=== PATIENT | male | born 1975 ===

== ENCOUNTER 2016-06-24 13:56 | Inpatient (IN) | payer MEDICAID, OTHER ==
[2016-06-24 15:48] LABS: Hematocrit 42 % (42-52); Hemoglobin 13.9 g/dl (14.0-18.0); Mean Corpuscular HGB Conc 33 g/dl (31-36); Mean Corpuscular Hemoglobin 31 pg (27-31); Mean Corpuscular Volume 93 fL (80-94); Mean Platelet Volume 8 um3 (7.4-10.4); Red Blood Count 4.49 10^6/ul (4.0-5.4); Red Cell Distribution Width 14 % (10.5-15); White Blood Count 7.9 10^3/ul (3.5-10.8)
[2016-06-24 16:08] LABS: ALT 19 U/L (7-52); AST 22 U/L (13-39); Albumin 4.3 g/dL (3.2-5.2); Alkaline Phosphatase 97 U/L (34-104); Anion Gap 8 mmol/L (2-11); Blood Urea Nitrogen 26 mg/dL (6-24); CO2 Carbon Dioxide 25 mmol/L (22-32); Calcium 9.7 mg/dL (8.6-10.3); Chloride 101 mmol/L (101-111); EGFR African American 114.6 (>60); EGFR Non-African American 89.1 (>60); Globulin 3.2 g/dL (2-4); Glucose 88 mg/dL (70-100); Potassium 3.9 mmol/L (3.5-5.0); Sodium 134 mmol/L (133-145); Total Protein 7.5 g/dL (6.4-8.9)
[2016-06-24 16:17] LABS: Acetaminophen < 15 mcg/mL; Alcohol < 10 mg/dL (<10); Salicylate < 2.50 mg/dL (<30)
[2016-06-24 16:27] LABS: TSH (Thyroid Stimulating Horm) 1.38 mcIU/mL (0.34-5.60)
[2016-06-24 16:32] LABS: Urine Bacteria Absent (Absent); Urine Bilirubin Negative (Negative); Urine Glucose Negative (Negative); Urine Nitrite Negative (Negative)
[2016-06-24 17:06] LABS: Benzodiazepine Urine Screen None Detected (None Detect)
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
[2016-06-26] MEDS ORDERED: LORazepam INJ* 2 MG/ML 1 ML VIAL IM ONE (05:21)
[2016-06-26] MEDS ORDERED: Haloperidol INJ IV/IM* 5 MG/ML AMP IM ONE (05:21)
[2016-06-26] MEDS ORDERED: diPHENhydraMINE IV* 50 MG/ML 1 ml VIAL (BENADRYL) IM ONE (05:21)
[2016-06-26] MEDS ORDERED: LORazepam INJ* 2 MG/ML 1 ML VIAL ONE ×2 (05:30→19:39)
[2016-06-26] MEDS ORDERED: diPHENhydraMINE IV* 50 MG/ML 1 ml VIAL (BENADRYL) ONE ×3 (05:30→19:47)
[2016-06-26] MEDS ORDERED: Haloperidol INJ IV/IM* 5 MG/ML AMP ONE ×2 (05:30→19:39)
[2016-06-26] MEDS ORDERED: Haloperidol TAB* 5 MG PO ONE (08:12)
[2016-06-26] MEDS ORDERED: LORazepam TAB(*) 1 MG PO ONE (08:12)
[2016-06-26] MEDS ORDERED: diPHENhydraMINE PO* 50 MG PO ONE (08:12)
[2016-06-26] MEDS ORDERED: DOXYcycline CAP(*) 100 MG PO ONE (08:14)
[2016-06-26] MEDS ORDERED: LORazepam TAB(*) 1 MG ONE ×2 (08:41→19:43)
--- NOTE | 2016-06-26 11:53 | PN ---
Progress Note - Progress Note Note: Patient seen and evaluated by myself in room 8 of ED. He is a 40 y.o. single, white, homeless, itinerant male with a history of bipolar BIB law enforcement for bizarre behavior in the community and inability to care for himself. He is deemed appropriate for acute admission to the [facility], pending male bed availability later this afternoon.
[2016-06-26] MEDS ORDERED: Al Hydrox/Mg Hydrox/Simet LIQ* 30 ML UDC PO PRN ×2 (13:54→14:10)
[2016-06-26] MEDS ORDERED: Acetaminophen TAB* 325 MG PO PRN ×2 (13:54→14:10)
[2016-06-26] MEDS ORDERED: Haloperidol TAB* 5 MG PO PRN (13:56)
[2016-06-26] MEDS ORDERED: LORazepam TAB(*) 1 MG PO PRN (13:56)
--- NOTE | 2016-06-26 16:57 | ED ---
I, Nataly Green, scribed for Ken Forrest MD on 06/26/16 at 0810 . Progress - Progress Note Progress Note: Re-Evaluation at 0806: Sign out from Dr. Nguyen. Pending Mental Health placement. Pt is bipolar (off his meds) and c/o abdominal pain, states tick on abd that he removed yesterday. Pt has well-defined area approx 1 cm red with a vesicle in the middle, no abscess. Could represent erythema migraines vs early cellulitis. Pt will be started on deoxycycline 100 mg BID for 7 days and will also be given 1 mg of Ativan as per Mental Health request for anxiety. Dx: bipolar, cellulitis from tick bite. Physical Examination: General appearance: poor hygiene Respiratory: CTA, Normal breath sounds Cardiovascular: RRR without murmurs Neurological/Psychiatric: appropriate judgment and insight, oriented to time, place and person, normal mood and affect 1300: Signed 9.39 Involuntary Psych Admission for pt. He will be admitted to Behavioral Health Unit, condition is stable. Dx: Insect bite vs psychosis. - Consult/PCP Time Called: 19:14 Re-Evaluation - Re-Evaluation First Eval Re-Evaluation Time: 08:06 Course/Dx - Course Course Of Treatment: NO CRITICAL CARE TIME - Diagnoses Provider Diagnoses: Mental health problem The documentation as recorded by the scribe, Nataly Green accurately reflects the service I personally performed and the decisions made by me, Ken Forrest MD.
[2016-06-26] MEDS ORDERED: Haloperidol TAB* 5 MG ONE (19:43)
[2016-06-26] MEDS ORDERED: diPHENhydraMINE PO* 50 MG ONE (19:43)
[2016-06-26] MEDS ORDERED: Ibuprofen TAB* 800 MG PO PRN (21:09)
--- NOTE | 2016-06-27 08:18 | RAD ---
Indication: RIGHT first toe and metatarsal region pain post injury. Comparison: None. Technique: AP, lateral, and oblique views RIGHT foot. REPORT AND IMPRESSION: Normal articular alignment. No cortical disruption or suspicious trabecular irregularity to suggest fracture. Mild soft tissue swelling about the medial forefoot.
[2016-06-27] MEDS ORDERED: Vitamin THERAPEUTIC TAB PO SCH (09:00)
[2016-06-27] MEDS: Vitamin THERAPEUTIC TAB PO SCH (10:34)
[2016-06-27] MEDS: DOXYcycline CAP(*) 100 MG PO SCH ×2 (10:44→21:28)
[2016-06-27] MEDS: Paliperidone TAB* 6 MG PO SCH (18:05)
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
[2016-06-28] MEDS: Paliperidone TAB* 6 MG PO SCH (10:07)
[2016-06-28] MEDS: Vitamin THERAPEUTIC TAB PO SCH (10:07)
[2016-06-28] MEDS: DOXYcycline CAP(*) 100 MG PO SCH ×3 (11:02→21:01)
--- NOTE | 2016-06-28 14:24 | PN ---
Subjective - Subjective Subjective: I attempted to visit with Mr. Topete on follow-up today. Each of my questions were answered with a sound "uhm"-patient would not speak with me directly. Did not answer any questions. Nursing staff report that he is compliant with oral medication (doxycycline) but is non-compliant with Invega. No issues at this time. I was unable to assess Mr. Topete for suicidal ideation, visual/auditory hallucinations, or delusional thought processes. Case was discussed with Dr. Arreguin. Objective - Appearance Appearance: Thin Framed Dysmorphic Features: No Hygiene: Normal - Unkempt Grooming: Disheveled - Behavior Psychomotor Activities: Normal - Attitude and Relatedness Attitude and Relatedness: Withdrawn Eye Contact: Poor - Speech Quality: Unpressured - Would not speak to me, thus I am unable to assess speech quality, latency or quantity. - Mood Patient's Decription of Mood: Pt. would not speak with me. - Affect Observed Affect: Unvariable - Impulse Control Impulse Control: Tenuous - Insight and Judgement Insight and Judgement: Impaired Plan - Plan Treatment Plan: Name: DARRYL TOPETE Birthdate: 1975 [id number] Medications: Current Medications Acetaminophen (Tylenol Tab*) 650 mg PO Q4H PRN PRN Reason: for pain; or Temp >101 F Al Hydrox/Mg Hydrox/Simethicone (Maalox Plus*) 30 ml PO Q4H PRN PRN Reason: INDIGESTION Doxycycline Hyclate (Vibramycin Cap(*)) 100 mg PO BID [facility] Stop: 07/05/16 21:01 Last Admin: 06/28/16 11:06 Dose: 100 mg Haloperidol (Haldol Tab*) 5 mg PO Q6H PRN PRN Reason: AGITATION Ibuprofen (Motrin Tab*) 800 mg PO Q8H PRN PRN Reason: PAIN Lorazepam (Ativan Tab(*)) 2 mg PO Q6H PRN PRN Reason: ANXIETY Multivitamins (Theragran Tab*) 1 tab PO DAILY [facility] Last Admin: 06/28/16 10:07 Dose: Not Given Paliperidone (Invega Tab*) 6 mg PO DAILY [facility] Last Admin: 06/28/16 10:07 Dose: Not Given
[2016-06-28] MEDS ORDERED: diPHENhydraMINE IV* 50 MG/ML 1 ml VIAL (BENADRYL) ONE (17:00)
[2016-06-28] MEDS ORDERED: LORazepam INJ* 2 MG/ML 1 ML VIAL IM ONE (17:30)
[2016-06-28] MEDS ORDERED: diPHENhydraMINE IV* 50 MG/ML 1 ml VIAL (BENADRYL) IM ONE (17:30)
[2016-06-28] MEDS ORDERED: Haloperidol INJ IV/IM* 5 MG/ML AMP IM ONE (17:30)
[2016-06-29] MEDS: DOXYcycline CAP(*) 100 MG PO SCH ×2 (09:37→20:42)
[2016-06-29] MEDS: Vitamin THERAPEUTIC TAB PO SCH (09:45)
[2016-06-29] MEDS: Paliperidone TAB* 6 MG PO SCH (09:45)
[2016-06-30] MEDS: Paliperidone TAB* 6 MG PO SCH (09:10)
[2016-06-30] MEDS: Vitamin THERAPEUTIC TAB PO SCH (09:10)
[2016-06-30] MEDS: DOXYcycline CAP(*) 100 MG PO SCH ×2 (09:10→22:11)
--- NOTE | 2016-06-30 15:42 | PN ---
Subjective - Subjective Service Type: 81890 Hosp care 15 min low complexity Subjective: Patient initially refuses to interact with me. When he does start speaking he raises his voice and becomes quite agitated, voicing complaints about bizarre subjects such as a plastic bubble that came down over a bank KEELY, which prevented him from withdrawing christopher, and "convex" nail clippers offered by staff members, instead of "concave." "It's not the same [place] that I left 3 years ago. It's like a different universe." He continues to decline paliperidone therapy and is not participating in groups. Objective - Appearance Appearance: Thin Framed Dysmorphic Features: No Hygiene: Normal Grooming: Fairly Well Kept - Behavior Psychomotor Activities: Normal Exhibits Abnormal Movement: No - Attitude and Relatedness Attitude and Relatedness: Hostile Eye Contact: Poor - Speech Quality: Pressured Latencies: Short Quantity: Copious - Affect Observed Affect: Labile Affect Consistent with: Dysphoria - Thought Process Patient's Thought Process: Tangential Thought Content: Yes Paranoid Ideation, No Passive Wish, No Suicidal Planning, No Homicidal Ideation - Sensorium Experiencing Hallucinations: No, Sensorium is Clear Type of Hallucinations: Visual: No, Auditory: No, Command: No - Level of Consciousness Level of Consciousness: Alert Orientation: Yes Intact, Yes Orientated to Time, Yes Orientated to Place, Yes Orientated to Person - Impulse Control Impulse Control: Poor - Insight and Judgement Insight and Judgement: Impaired - Group Participation Particating in Group Activities: No - Medication Management Medication Management Adherence: No Assessment - Assessment Merits Inpatient Hospitalization: For Immediate Safety, For Stabilization Inpatient DSM-IV Dx: Unspecified Psychotic DO Clinical Impression: 40 y.o. single, white, homeless, itinerant male, self identifying as Gnosticist, with a history of multiple past psychiatric admissions in multiple countries, brought in on a 9.41 by police who had discovered him wading, fully clothed and with a backpack, into [facility], who now presents with paranoid and hyperreligious delusions, irritability and inability to care for himself. Plan - Plan Treatment Plan: Name: DARRYL TOPETE Birthdate: 1975 [id number] The patient is refusing medications and remains delusional and hyperreligious. His behavior has been sufficiently dangerous to warrant Security intervention and stat PRN psychotropic medications on several occasions. We will pursue court order for [place]. and continue to work on the therapeutic alliance. Continued Medication Management: Start Medication Medications: Current Medications Acetaminophen (Tylenol Tab*) 650 mg PO Q4H PRN PRN Reason: for pain; or Temp >101 F Al Hydrox/Mg Hydrox/Simethicone (Maalox Plus*) 30 ml PO Q4H PRN PRN Reason: INDIGESTION Doxycycline Hyclate (Vibramycin Cap(*)) 100 mg PO BID [facility] Stop: 07/06/16 09:01 Last Admin: 06/30/16 09:10 Dose: 100 mg Haloperidol (Haldol Tab*) 5 mg PO Q6H PRN PRN Reason: AGITATION Ibuprofen (Motrin Tab*) 800 mg PO Q8H PRN PRN Reason: PAIN Lorazepam (Ativan Tab(*)) 2 mg PO Q6H PRN PRN Reason: ANXIETY Multivitamins (Theragran Tab*) 1 tab PO DAILY [facility] Last Admin: 06/30/16 09:10 Dose: Not Given Paliperidone (Invega Tab*) 6 mg PO DAILY [facility] Last Admin: 06/30/16 09:10 Dose: Not Given - Discharge Plan Discharge Plan: Inpatient Hospitalization
[2016-07-01] MEDS: Paliperidone TAB* 6 MG PO SCH (09:43)
[2016-07-01] MEDS: Vitamin THERAPEUTIC TAB PO SCH (09:43)
[2016-07-01] MEDS: DOXYcycline CAP(*) 100 MG PO SCH ×2 (09:43→21:33)
--- NOTE | 2016-07-01 11:12 | PN ---
Subjective - Subjective Service Type: [id number] Hosp care 15 min low complexity Subjective: The patient is irritable and hostile. States that his step-mother is hiring him an employment law attorney to represent him to get out of the hospital. When confronted with his agitated and nonsensical behaviors, both before and during hospitalization, he either states that these are lies or the result of outside forces, such as people who dislike him, or demons. "This place is not real. [place] is not real. Don't you see that I don't want to be part of the psychological, ego-driven realm that people live their lives?" He continues to refuse medications. Objective - Appearance Appearance: Thin Framed Dysmorphic Features: No Hygiene: Normal Grooming: Fairly Well Kept - Behavior Psychomotor Activities: Normal Exhibits Abnormal Movement: No - Attitude and Relatedness Attitude and Relatedness: Hostile Eye Contact: Poor - Speech Quality: Pressured Latencies: Short Quantity: Copious - Mood Patient's Decription of Mood: "Irritable" - Affect Observed Affect: Labile Affect Consistent with: Dysphoria - Thought Process Patient's Thought Process: Filght of Ideas Thought Content: Yes Paranoid Ideation, No Passive Wish, No Suicidal Planning, No Homicidal Ideation - Sensorium Experiencing Hallucinations: No, Sensorium is Clear Type of Hallucinations: Visual: No, Auditory: No, Command: No - Level of Consciousness Level of Consciousness: Agitated Orientation: Yes Intact, Yes Orientated to Time, Yes Orientated to Place, Yes Orientated to Person - Impulse Control Impulse Control: Poor - Insight and Judgement Insight and Judgement: Impaired - Group Participation Particating in Group Activities: No - Medication Management Medication Management Adherence: No Assessment - Assessment Merits Inpatient Hospitalization: For Immediate Safety, For Stabilization Inpatient DSM-IV Dx: Unspecified Psychotic DO Clinical Impression: 40 y.o. single, white, homeless, itinerant male, self identifying as Shinto, with a history of multiple past psychiatric admissions in multiple countries, brought in on a 9.41 by police who had discovered him wading, fully clothed and with a backpack, into [facility], who now presents with paranoid and hyperreligious delusions, irritability and inability to care for himself. Plan - Plan Treatment Plan: Name: DARRYL TOPETE Birthdate: 1975 [id number] The patient is refusing medications and remains delusional and hyperreligious. His behavior has been sufficiently dangerous to warrant Security intervention and stat PRN psychotropic medications on several occasions. We will pursue court order for T.O.O. and continue to work on the therapeutic alliance. Continued Medication Management: Start Medication Medications: Current Medications Acetaminophen (Tylenol Tab*) 650 mg PO Q4H PRN PRN Reason: for pain; or Temp >101 F Al Hydrox/Mg Hydrox/Simethicone (Maalox Plus*) 30 ml PO Q4H PRN PRN Reason: INDIGESTION Doxycycline Hyclate (Vibramycin Cap(*)) 100 mg PO BID [facility] Stop: 07/06/16 09:01 Last Admin: 07/01/16 09:43 Dose: 100 mg Haloperidol (Haldol Tab*) 5 mg PO Q6H PRN PRN Reason: AGITATION Ibuprofen (Motrin Tab*) 800 mg PO Q8H PRN PRN Reason: PAIN Lorazepam (Ativan Tab(*)) 2 mg PO Q6H PRN PRN Reason: ANXIETY Multivitamins (Theragran Tab*) 1 tab PO DAILY [facility] Last Admin: 07/01/16 09:43 Dose: Not Given Paliperidone (Invega Tab*) 6 mg PO DAILY [facility] Last Admin: 07/01/16 09:43 Dose: Not Given - Discharge Plan Discharge Plan: Inpatient Hospitalization
[2016-07-02] MEDS: Paliperidone TAB* 6 MG PO SCH (09:41)
[2016-07-02] MEDS: Vitamin THERAPEUTIC TAB PO SCH (09:41)
[2016-07-02] MEDS: DOXYcycline CAP(*) 100 MG PO SCH ×2 (09:52→21:20)
--- NOTE | 2016-07-02 11:29 | PN ---
Subjective - Subjective Service Type: [id number] Hosp care 15 min low complexity Subjective: The patient is seen in his room, where he keeps a blanket over his face, refusing to make eye contact and responding initially with only unintelligible grunts to my questions. Staff reports indicate that he remains demanding, irritable and up at night chanting restoration mantra on the milieu. The patient' s belief is that he is being treated unfairly and that staff are making him out to be more dangerous than he really is. He complains to me about not receiving proper treatment, for example, on the right foot that he kicked a door with on the evening of his admission to the unit. I reiterate that X-rays are negative and that he has prn pain medication and ice available. "Isn't this a medical center though? Isn't it your mission statement to provide real medical treatment to patients? Why haven't you wrapped it up and given me a cane or walker to prevent me from re-injuring it?" He is educated about our concerns for violent behavior, were he to have a cane or walker, but he is dismissive towards this. He continues to decline medication. Objective - Appearance Appearance: Thin Framed Dysmorphic Features: No Hygiene: Normal Grooming: Fairly Well Kept - Behavior Psychomotor Activities: Normal Exhibits Abnormal Movement: No - Attitude and Relatedness Attitude and Relatedness: Hostile Eye Contact: Poor - Speech Quality: Pressured Latencies: Short Quantity: Copious - Mood Patient's Decription of Mood: "Irritable" - Affect Observed Affect: Tense Affect Consistent with: Dysphoria - Thought Process Patient's Thought Process: Circumstantial Thought Content: Yes Paranoid Ideation, No Passive Wish, No Suicidal Planning, No Homicidal Ideation - Sensorium Experiencing Hallucinations: No, Sensorium is Clear Type of Hallucinations: Visual: No, Auditory: No, Command: No - Level of Consciousness Level of Consciousness: Agitated Orientation: Yes Intact, Yes Orientated to Time, Yes Orientated to Place, Yes Orientated to Person - Impulse Control Impulse Control: Poor - Insight and Judgement Insight and Judgement: Impaired - Group Participation Particating in Group Activities: No - Medication Management Medication Management Adherence: No Assessment - Assessment Merits Inpatient Hospitalization: For Immediate Safety, For Stabilization Inpatient DSM-IV Dx: Unspecified Psychotic DO Clinical Impression: 40 y.o. single, white, homeless, itinerant male, self identifying as Islam, with a history of multiple past psychiatric admissions in multiple countries, brought in on a 9.41 by police who had discovered him wading, fully clothed and with a backpack, into [facility], who now presents with paranoid and hyperreligious delusions, irritability and inability to care for himself. Plan - Plan Treatment Plan: Name: DARRYL TOPETE Birthdate: 1975 [id number] The patient is refusing medications and remains delusional and hyperreligious. His behavior has been sufficiently dangerous to warrant Security intervention and stat PRN psychotropic medications on several occasions. We will pursue court order for T.O.O. and continue to work on the therapeutic alliance. Continued Medication Management: Start Medication Medications: Current Medications Acetaminophen (Tylenol Tab*) 650 mg PO Q4H PRN PRN Reason: for pain; or Temp >101 F Al Hydrox/Mg Hydrox/Simethicone (Maalox Plus*) 30 ml PO Q4H PRN PRN Reason: INDIGESTION Doxycycline Hyclate (Vibramycin Cap(*)) 100 mg PO BID [facility] Stop: 07/06/16 09:01 Last Admin: 07/02/16 09:52 Dose: Not Given Haloperidol (Haldol Tab*) 5 mg PO Q6H PRN PRN Reason: AGITATION Ibuprofen (Motrin Tab*) 800 mg PO Q8H PRN PRN Reason: PAIN Lorazepam (Ativan Tab(*)) 2 mg PO Q6H PRN PRN Reason: ANXIETY Multivitamins (Theragran Tab*) 1 tab PO DAILY [facility] Last Admin: 07/02/16 09:41 Dose: Not Given Paliperidone (Invega Tab*) 6 mg PO DAILY [facility] Last Admin: 07/02/16 09:41 Dose: Not Given - Discharge Plan Discharge Plan: Inpatient Hospitalization
[2016-07-02] MEDS ORDERED: Haloperidol INJ IV/IM* 5 MG/ML AMP ONE (13:22)
[2016-07-02] MEDS ORDERED: diPHENhydraMINE IV* 50 MG/ML 1 ml VIAL (BENADRYL) ONE (13:22)
[2016-07-02] MEDS ORDERED: LORazepam INJ* 2 MG/ML 1 ML VIAL ONE (13:22)
[2016-07-03] MEDS: DOXYcycline CAP(*) 100 MG PO SCH ×2 (09:55→21:02)
[2016-07-03] MEDS: Paliperidone TAB* 6 MG PO SCH (09:55)
[2016-07-03] MEDS: Vitamin THERAPEUTIC TAB PO SCH (09:55)
--- NOTE | 2016-07-03 13:30 | PN ---
MHU: Group Therapy Note - Service Type Service Type: [id number] Group Psychotherapy - Cognitive Behavioral Group Therapy ( CBT):Patient presented in CBT programming as disorganized and disruptive in discussion and needed repeated redirection to attend to presented materials.
--- NOTE | 2016-07-03 13:37 | PN ---
Subjective - Subjective Service Type: [id number] Hosp care 15 min low complexity Subjective: The patient is hyperverbal. He discusses the events leading up to his deportation from [place], his arrival and brief hospitalization in [place], [place], his trip to [place] and difficulties finding a safe place to stay. His account is dream-like and full of allusions to persecutory and violent interactions with others, with himself always portrayed as the victim. He is argumentative and frequently raises his voice in objection to some observation or clarifying remark of mine. He required prn administration of IM stat meds yesterday for an incident in which he became irate and disruptive during a DBT group. Staff notes indicate that he objected to the meditation component of the class being taught by a mental health tech with no qualifications to teach the subject. After being asked to leave, he stood outside the door of the group room with a menacing stare and was screaming at the general doc. Lew takes no responsibility for this behavior, believing himself justified in wanting proof of the general doc's training. Objective - Appearance Appearance: Thin Framed Dysmorphic Features: No Hygiene: Normal Grooming: Fairly Well Kept - Behavior Psychomotor Activities: Normal Exhibits Abnormal Movement: No - Attitude and Relatedness Attitude and Relatedness: Hostile Eye Contact: Poor - Speech Quality: Pressured Latencies: Short Quantity: Copious - Mood Patient's Decription of Mood: "Irritable" - Affect Observed Affect: Labile Affect Consistent with: Dysphoria - Thought Process Patient's Thought Process: Tangential Thought Content: Yes Paranoid Ideation, No Passive Wish, No Suicidal Planning, No Homicidal Ideation - Sensorium Experiencing Hallucinations: No, Sensorium is Clear Type of Hallucinations: Visual: No, Auditory: No, Command: No - Level of Consciousness Level of Consciousness: Agitated Orientation: Yes Intact, Yes Orientated to Time, Yes Orientated to Place, Yes Orientated to Person - Impulse Control Impulse Control: Poor - Insight and Judgement Insight and Judgement: Impaired - Group Participation Particating in Group Activities: No - Medication Management Medication Management Adherence: No Assessment - Assessment Merits Inpatient Hospitalization: For Immediate Safety, For Stabilization Inpatient DSM-IV Dx: Unspecified Psychotic DO Clinical Impression: 40 y.o. single, white, homeless, itinerant male, self identifying as Hindu, with a history of multiple past psychiatric admissions in multiple countries, brought in on a 9.41 by police who had discovered him wading, fully clothed and with a backpack, into [facility], who now presents with paranoid and hyperreligious delusions, irritability and inability to care for himself. Plan - Plan Treatment Plan: Name: LEW TOPETE Birthdate: 1975 [id number] The patient is refusing medications and remains argumentative, delusional and hyperreligious. His behavior has been sufficiently dangerous to warrant Security intervention and stat PRN psychotropic medications on several occasions. We will pursue court order for T.O.O. and continue to work on the therapeutic alliance. Continued Medication Management: Start Medication Medications: Current Medications Acetaminophen (Tylenol Tab*) 650 mg PO Q4H PRN PRN Reason: for pain; or Temp >101 F Al Hydrox/Mg Hydrox/Simethicone (Maalox Plus*) 30 ml PO Q4H PRN PRN Reason: INDIGESTION Doxycycline Hyclate (Vibramycin Cap(*)) 100 mg PO BID [facility] Stop: 07/06/16 09:01 Last Admin: 07/03/16 09:55 Dose: Not Given Haloperidol (Haldol Tab*) 5 mg PO Q6H PRN PRN Reason: AGITATION Ibuprofen (Motrin Tab*) 800 mg PO Q8H PRN PRN Reason: PAIN Lorazepam (Ativan Tab(*)) 2 mg PO Q6H PRN PRN Reason: ANXIETY Multivitamins (Theragran Tab*) 1 tab PO DAILY [facility] Last Admin: 07/03/16 09:55 Dose: Not Given Paliperidone (Invega Tab*) 6 mg PO DAILY [facility] Last Admin: 07/03/16 09:55 Dose: Not Given - Discharge Plan Discharge Plan: Inpatient Hospitalization
[2016-07-04] MEDS: Vitamin THERAPEUTIC TAB PO SCH (07:53)
[2016-07-04] MEDS: Paliperidone TAB* 6 MG PO SCH (07:53)
[2016-07-04] MEDS: DOXYcycline CAP(*) 100 MG PO SCH ×2 (07:53→21:21)
--- NOTE | 2016-07-04 12:47 | PN ---
Subjective - Subjective Service Type: [id number] Hosp care 15 min low complexity Subjective: Lew is seen today for the court hearing on the questions of retention and treatment over objection. He is hyperverbal and continues to talk in a paranoid , hyperreligious manner about the events leading to his hospitalization and how he's been treated here at [facility]. He became agitated when the [facility] came to escort him to court, apparently upset by the protocol to place him in handcuffs for the trip. Otherwise, he tolerated the hearing well, even upon hearing that the edge sawyer sided with the hospital's position. Objective - Appearance Appearance: Thin Framed Dysmorphic Features: No Hygiene: Normal Grooming: Fairly Well Kept - Behavior Psychomotor Activities: Normal Exhibits Abnormal Movement: No - Attitude and Relatedness Attitude and Relatedness: Hostile Eye Contact: Poor - Speech Quality: Pressured Latencies: Short Quantity: Copious - Mood Patient's Decription of Mood: "Irritable" - Affect Observed Affect: Tense Affect Consistent with: Dysphoria - Thought Process Patient's Thought Process: Tangential Thought Content: Yes Paranoid Ideation, No Passive Wish, No Suicidal Planning, No Homicidal Ideation - Sensorium Experiencing Hallucinations: No, Sensorium is Clear Type of Hallucinations: Visual: No, Auditory: No, Command: No - Level of Consciousness Level of Consciousness: Alert Orientation: Yes Intact, Yes Orientated to Time, Yes Orientated to Place, Yes Orientated to Person - Impulse Control Impulse Control: Poor - Insight and Judgement Insight and Judgement: Impaired - Group Participation Particating in Group Activities: No - Medication Management Medication Management Adherence: No Assessment - Assessment Merits Inpatient Hospitalization: For Immediate Safety, For Stabilization Inpatient DSM-IV Dx: Unspecified Psychotic DO Clinical Impression: 40 y.o. single, white, homeless, itinerant male, self identifying as Mandaen, with a history of multiple past psychiatric admissions in multiple countries, brought in on a 9.41 by police who had discovered him wading, fully clothed and with a backpack, into [facility], who now presents with paranoid and hyperreligious delusions, irritability and inability to care for himself. Plan - Plan Treatment Plan: Name: LEW TOPETE Birthdate: 1975 [id number] The patient is refusing medications and remains argumentative, delusional and hyperreligious. His behavior has been sufficiently dangerous to warrant Security intervention and stat PRN psychotropic medications on several occasions. We await a hard copy of the edge sawyer's order for treatment over his objection and will likely start antipsychotic therapy. Continued Medication Management: Start Medication Medications: Current Medications Acetaminophen (Tylenol Tab*) 650 mg PO Q4H PRN PRN Reason: for pain; or Temp >101 F Al Hydrox/Mg Hydrox/Simethicone (Maalox Plus*) 30 ml PO Q4H PRN PRN Reason: INDIGESTION Doxycycline Hyclate (Vibramycin Cap(*)) 100 mg PO BID [facility] Stop: 07/06/16 09:01 Last Admin: 07/04/16 07:53 Dose: Not Given Haloperidol (Haldol Tab*) 5 mg PO Q6H PRN PRN Reason: AGITATION Ibuprofen (Motrin Tab*) 800 mg PO Q8H PRN PRN Reason: PAIN Lorazepam (Ativan Tab(*)) 2 mg PO Q6H PRN PRN Reason: ANXIETY Multivitamins (Theragran Tab*) 1 tab PO DAILY [facility] Last Admin: 07/04/16 07:53 Dose: Not Given Paliperidone (Invega Tab*) 6 mg PO DAILY [facility] Last Admin: 07/04/16 07:53 Dose: Not Given - Discharge Plan Discharge Plan: Inpatient Hospitalization
[2016-07-05] MEDS: Vitamin THERAPEUTIC TAB PO SCH (09:52)
[2016-07-05] MEDS: Paliperidone TAB* 6 MG PO SCH (09:52)
[2016-07-05] MEDS: DOXYcycline CAP(*) 100 MG PO SCH ×2 (09:52→20:17)
--- NOTE | 2016-07-05 16:34 | PN ---
Subjective - Subjective Service Type: 74203 Hosp care 25 min moderate complexity Subjective: Patient continues to refuse medications. States he would voluntarily consider taking meds if he could speak with a Jew grinder set up operator universal. Patient remains hyperverbal, pressured and argumentative on the unit, narrowly avoiding prn stat meds on multiple occasions since yesterday. Objective - Appearance Appearance: Thin Framed Dysmorphic Features: No Hygiene: Normal Grooming: Well Kept - Behavior Psychomotor Activities: Abnormal-Increased Exhibits Abnormal Movement: No - Attitude and Relatedness Attitude and Relatedness: argumentative Eye Contact: Fair - Speech Quality: Pressured Latencies: Short Quantity: Copious - Mood Patient's Decription of Mood: "Irritable" - Affect Observed Affect: Labile Affect Consistent with: Dysphoria - Thought Process Patient's Thought Process: Tangential Thought Content: Yes Paranoid Ideation, No Passive Wish, No Suicidal Planning, No Homicidal Ideation - Sensorium Experiencing Hallucinations: No, Sensorium is Clear Type of Hallucinations: Visual: No, Auditory: No, Command: No - Level of Consciousness Level of Consciousness: Agitated Orientation: Yes Intact, Yes Orientated to Time, Yes Orientated to Place, Yes Orientated to Person - Impulse Control Impulse Control: Poor - Insight and Judgement Insight and Judgement: Impaired - Group Participation Particating in Group Activities: No - Medication Management Medication Management Adherence: No Assessment - Assessment Merits Inpatient Hospitalization: For Immediate Safety, For Stabilization Inpatient DSM-IV Dx: Unspecified Psychotic DO Clinical Impression: 40 y.o. single, white, homeless, itinerant male, self identifying as Jew, with a history of multiple past psychiatric admissions in multiple countries, brought in on a 9.41 by police who had discovered him wading, fully clothed and with a backpack, into [facility], who now presents with paranoid and hyperreligious delusions, irritability and inability to care for himself. Plan - Plan Treatment Plan: Name: DARRYL TOPETE Birthdate: 1975 [id number] The patient is refusing medications and remains argumentative, delusional and hyperreligious. Will consult grinder set up operator universal to see if there is a Jew authority in the area who can discuss his episcopal exceptions to taking medications. Otherwise I fear that he will quickly become non-adherent after discharge. Continued Medication Management: Start Medication Medications: Current Medications Acetaminophen (Tylenol Tab*) 650 mg PO Q4H PRN PRN Reason: for pain; or Temp >101 F Al Hydrox/Mg Hydrox/Simethicone (Maalox Plus*) 30 ml PO Q4H PRN PRN Reason: INDIGESTION Doxycycline Hyclate (Vibramycin Cap(*)) 100 mg PO BID [facility] Stop: 07/06/16 09:01 Last Admin: 07/05/16 09:52 Dose: Not Given Haloperidol (Haldol Tab*) 5 mg PO Q6H PRN PRN Reason: AGITATION Ibuprofen (Motrin Tab*) 800 mg PO Q8H PRN PRN Reason: PAIN Lorazepam (Ativan Tab(*)) 2 mg PO Q6H PRN PRN Reason: ANXIETY Multivitamins (Theragran Tab*) 1 tab PO DAILY [facility] Last Admin: 07/05/16 09:52 Dose: Not Given Paliperidone (Invega Tab*) 6 mg PO DAILY [facility] Last Admin: 07/05/16 09:52 Dose: Not Given - Discharge Plan Discharge Plan: Inpatient Hospitalization
[2016-07-06] MEDS: Paliperidone TAB* 6 MG PO SCH (09:31)
[2016-07-06] MEDS: DOXYcycline CAP(*) 100 MG PO SCH (09:31)
[2016-07-06] MEDS: Vitamin THERAPEUTIC TAB PO SCH (09:31)
[2016-07-07] MEDS: Paliperidone TAB* 6 MG PO SCH (09:12)
[2016-07-07] MEDS: Vitamin THERAPEUTIC TAB PO SCH (09:13)
--- NOTE | 2016-07-07 12:59 | PN ---
Subjective - Subjective Service Type: 18755 Hosp care 15 min low complexity Subjective: Lew is seen in the hallway and he immediately engages me, telling me that his rights are being violated. "You haven't allowed me to use a computer or go outside for fresh air. Even prisoners and animals are granted these things!" He is extremely loud and pressured when he is making these points. He expresses his belief that I am controlling his freedom for my own pleasure. "This is just a game to you. You are interested in sports! It's all about winning, you jackass!" He remains non-adherent with medications and insists on seeing a monk from the local [facility] before he allows anyone to medicate him. Objective - Appearance Appearance: Thin Framed Dysmorphic Features: No Hygiene: Normal Grooming: Well Kept - Behavior Psychomotor Activities: Abnormal-Increased Exhibits Abnormal Movement: No - Attitude and Relatedness Attitude and Relatedness: Hostile Eye Contact: Poor - Speech Quality: Pressured Latencies: Short Quantity: Copious - Mood Patient's Decription of Mood: "Terrible" - Affect Observed Affect: Labile Affect Consistent with: Dysphoria - Thought Process Patient's Thought Process: Tangential Thought Content: Yes Paranoid Ideation, No Passive Wish, No Suicidal Planning, No Homicidal Ideation - Sensorium Experiencing Hallucinations: No, Sensorium is Clear Type of Hallucinations: Visual: No, Auditory: No, Command: No - Level of Consciousness Level of Consciousness: Agitated Orientation: Yes Intact, Yes Orientated to Time, Yes Orientated to Place, Yes Orientated to Person - Impulse Control Impulse Control: Poor - Insight and Judgement Insight and Judgement: Impaired - Group Participation Particating in Group Activities: No - Medication Management Medication Management Adherence: No Assessment - Assessment Merits Inpatient Hospitalization: For Immediate Safety, For Stabilization Inpatient DSM-IV Dx: Unspecified Psychotic DO Clinical Impression: 40 y.o. single, white, homeless, itinerant male, self identifying as Synagogue, with a history of multiple past psychiatric admissions in multiple countries, brought in on a 9.41 by police who had discovered him wading, fully clothed and with a backpack, into [facility], who now presents with paranoid and hyperreligious delusions, irritability and inability to care for himself. Plan - Plan Treatment Plan: Name: LEW TOPETE Birthdate: 1975 [id number] The patient is refusing medications and remains argumentative, delusional and hyperreligious. Will consult legal secretary to see if there is a Synagogue authority in the area who can discuss his worship exceptions to taking medications. Otherwise I fear that he will quickly become non-adherent after discharge. Continued Medication Management: Start Medication Medications: Current Medications Acetaminophen (Tylenol Tab*) 650 mg PO Q4H PRN PRN Reason: for pain; or Temp >101 F Al Hydrox/Mg Hydrox/Simethicone (Maalox Plus*) 30 ml PO Q4H PRN PRN Reason: INDIGESTION Haloperidol (Haldol Tab*) 5 mg PO Q6H PRN PRN Reason: AGITATION Ibuprofen (Motrin Tab*) 800 mg PO Q8H PRN PRN Reason: PAIN Lorazepam (Ativan Tab(*)) 2 mg PO Q6H PRN PRN Reason: ANXIETY Multivitamins (Theragran Tab*) 1 tab PO DAILY [facility] Last Admin: 07/07/16 09:13 Dose: Not Given Paliperidone (Invega Tab*) 6 mg PO DAILY [facility] Last Admin: 07/07/16 09:12 Dose: Not Given - Discharge Plan Discharge Plan: Inpatient Hospitalization
[2016-07-08] MEDS: Paliperidone TAB* 6 MG PO SCH (09:46)
[2016-07-08] MEDS: Vitamin THERAPEUTIC TAB PO SCH (09:46)
--- NOTE | 2016-07-08 11:27 | PN ---
MHU: Group Therapy Note - Service Type Service Type: [id number] Group Psychotherapy - Cognitive Behavioral Group Therapy ( CBT):Patient presented in CBT programming as disorganized and disruptive in discussion and needed repeated redirection to attend to presented materials. Lew simply attempted to contradict introduced discussion of various clinical concepts. This behavior impressed as intentional, as he remains angry and indignant of his inpatient status.
[2016-07-08] MEDS ORDERED: Haloperidol INJ IV/IM* 5 MG/ML AMP IM PRN (12:42)
[2016-07-08] MEDS ORDERED: Haloperidol INJ IV/IM* 5 MG/ML AMP ONE (12:45)
[2016-07-08] MEDS ORDERED: ARIPiprazole TAB* 5 MG ONE (12:45)
--- NOTE | 2016-07-08 13:09 | PN ---
Subjective - Subjective Service Type: [id number] [facility] care 15 min low complexity Subjective: The patient is screaming at me that I have violated his rights and have no legal justification to medicate him over his objection. When I inform him of my decision to place him on oral aripiprazole, and that he will receive IM haldol if he refuses this he reacts by prostrating himself on the ground and attempting to kiss my feet. "No please don't use chemicals inside of me! I'll do anything you ask!" Ultimately, he did refuse oral aripiprazole and received an IM dose of haldol, in accordance with the taxicab coordinator's order. I spoke with his step-Mother, Chandni ([phone]), who is his sole JASEN, and kept her abreast of the situation. I also spoke with Ritesh Hughes about reaching out to the local Anabaptist community to find him some pastoral support from his chosen gnosticist tradition. Forwarded emails from his mother and extended family indicate that Darryl's submarine advisory team watch officer, Rufino, was spiking Darryl's food at various times with a hallucinogenic seed called Datura. Family inquires as to how much this substance may have damaged the patient's thinking. His mother alleges in one of the emails that during a recent telephone conversation Darryl told her to have a "smooth and safe ." Objective - Appearance Appearance: Thin Framed Dysmorphic Features: No Hygiene: Normal Grooming: Well Kept - Behavior Psychomotor Activities: Abnormal-Increased Exhibits Abnormal Movement: No - Attitude and Relatedness Attitude and Relatedness: Hostile Eye Contact: Poor - Speech Quality: Pressured Latencies: Short Quantity: Copious - Mood Patient's Decription of Mood: "Terrible" - Affect Observed Affect: Labile Affect Consistent with: Dysphoria - Thought Process Patient's Thought Process: Tangential Thought Content: Yes Paranoid Ideation, No Passive Wish, No Suicidal Planning, No Homicidal Ideation - Sensorium Experiencing Hallucinations: No, Sensorium is Clear Type of Hallucinations: Visual: No, Auditory: No, Command: No - Level of Consciousness Level of Consciousness: Alert Orientation: Yes Intact, Yes Orientated to Time, Yes Orientated to Place, Yes Orientated to Person - Impulse Control Impulse Control: Poor - Insight and Judgement Insight and Judgement: Impaired - Group Participation Particating in Group Activities: No - Medication Management Medication Management Adherence: No Assessment - Assessment Merits Inpatient Hospitalization: For Immediate Safety, For Stabilization Inpatient DSM-IV Dx: Unspecified Psychotic DO Clinical Impression: 40 y.o. single, white, homeless, itinerant male, self identifying as Anabaptist, with a history of multiple past psychiatric admissions in multiple countries, brought in on a 9.41 by police who had discovered him wading, fully clothed and with a backpack, into [facility], who now presents with paranoid and hyperreligious delusions, irritability and inability to care for himself. Plan - Plan Treatment Plan: Name: DARRYL TOPETE Birthdate: 1975 [id number] The patient is refusing medications and remains argumentative, delusional and hyperreligious. Will begin court-ordered treatment with aripiprazole 5mg PO qday. If he refuses we will administer IM haldol 5mg. We are working with the consult pelletizer operator to see if there is a Anabaptist authority in the area who can discuss his gnosticist exceptions to taking medications. Patient's prognosis is guarded secondary to poor insight. Continued Medication Management: Start Medication Medications: Current Medications Acetaminophen (Tylenol Tab*) 650 mg PO Q4H PRN PRN Reason: for pain; or Temp >101 F Al Hydrox/Mg Hydrox/Simethicone (Maalox Plus*) 30 ml PO Q4H PRN PRN Reason: INDIGESTION Aripiprazole (Abilify Tab*) 5 mg PO DAILY [facility] Haloperidol (Haldol Tab*) 5 mg PO Q6H PRN PRN Reason: AGITATION Haloperidol Lactate (Haldol Inj Iv/Im*) 5 mg IM DAILY PRN PRN Reason: AGITATION Last Admin: 07/08/16 12:58 Dose: 5 mg Ibuprofen (Motrin Tab*) 800 mg PO Q8H PRN PRN Reason: PAIN Lorazepam (Ativan Tab(*)) 2 mg PO Q6H PRN PRN Reason: ANXIETY Multivitamins (Theragran Tab*) 1 tab PO DAILY [facility]I Last Admin: 07/08/16 09:46 Dose: Not Given - Discharge Plan Discharge Plan: Inpatient Hospitalization
[2016-07-09] MEDS: Vitamin THERAPEUTIC TAB PO SCH (10:12)
[2016-07-09] MEDS: ARIPiprazole TAB* 5 MG PO SCH (10:13)
--- NOTE | 2016-07-09 11:26 | PN ---
MHU: Group Therapy Note - Service Type Service Type: [id number] Group Psychotherapy - Cognitive Behavioral Group Therapy ( CBT):Patient was attentive and participatory in CBT programming this morning, and remained in good behavioral control. Patient expressed positive insights regarding relevant treatment interventions and goals.
--- NOTE | 2016-07-09 12:03 | PN ---
Subjective - Subjective Service Type: [id number] [facility]osp care 15 min low complexity Subjective: Lew appears more subdued this AM. He took the oral aripiprazole this morning after refusing it yesterday and receiving IM haldol, which he claims gave him stomach discomfort. As per the administrative liaison's note from yesterday, Lew was visited by some [employer] monks from a local [facility] last night and the visit gave him comfort. It's unclear whether the monks advised him to be compliant with treatment, yet he certainly seems more so today. He voices no spontaneous complaints after taking the aripiprazole. Objective - Appearance Appearance: Thin Framed Dysmorphic Features: No Hygiene: Normal Grooming: Well Kept - Behavior Psychomotor Activities: Normal Exhibits Abnormal Movement: No - Attitude and Relatedness Attitude and Relatedness: Withdrawn Eye Contact: Poor - Speech Quality: Unpressured Latencies: Normal Quantity: Terse - Mood Patient's Decription of Mood: "Fine" - Affect Observed Affect: Tense Affect Consistent with: Dysphoria - Thought Process Patient's Thought Process: Tangential, Circumstantial Thought Content: Yes Paranoid Ideation, No Passive Wish, No Suicidal Planning, No Homicidal Ideation - Sensorium Experiencing Hallucinations: No, Sensorium is Clear Type of Hallucinations: Visual: No, Auditory: No, Command: No - Level of Consciousness Level of Consciousness: Alert Orientation: Yes Intact, Yes Orientated to Time, Yes Orientated to Place, Yes Orientated to Person - Impulse Control Impulse Control: Poor - Insight and Judgement Insight and Judgement: Impaired - Group Participation Particating in Group Activities: Yes - Medication Management Medication Management Adherence: Partial Assessment - Assessment Merits Inpatient Hospitalization: For Immediate Safety, For Stabilization Inpatient DSM-IV Dx: Unspecified Psychotic DO Clinical Impression: 40 y.o. single, white, homeless, itinerant male, self identifying as Mormon, with a history of multiple past psychiatric admissions in multiple countries, brought in on a 9.41 by police who had discovered him wading, fully clothed and with a backpack, into [facility], who now presents with paranoid and hyperreligious delusions, irritability and inability to care for himself. Plan - Plan Treatment Plan: Name: LEW TOPETE Birthdate: 1975 [id number] The patient is now accepting court-ordered treatment with aripiprazole 5mg PO qday, albeit over his objection. He has been visited by some local Mormon monks, and that interaction appears to have been helpful. Will work towards reducing symptoms of psychotic della in the interest of forming a safe d/c plan. Continued Medication Management: Start Medication Medications: Current Medications Acetaminophen (Tylenol Tab*) 650 mg PO Q4H PRN PRN Reason: for pain; or Temp >101 F Al Hydrox/Mg Hydrox/Simethicone (Maalox Plus*) 30 ml PO Q4H PRN PRN Reason: INDIGESTION Aripiprazole (Abilify Tab*) 5 mg PO DAILY [facility] Last Admin: 07/09/16 10:13 Dose: 5 mg Haloperidol (Haldol Tab*) 5 mg PO Q6H PRN PRN Reason: AGITATION Haloperidol Lactate (Haldol Inj Iv/Im*) 5 mg IM DAILY PRN PRN Reason: AGITATION Last Admin: 07/08/16 12:58 Dose: 5 mg Ibuprofen (Motrin Tab*) 800 mg PO Q8H PRN PRN Reason: PAIN Lorazepam (Ativan Tab(*)) 2 mg PO Q6H PRN PRN Reason: ANXIETY Multivitamins (Theragran Tab*) 1 tab PO DAILY [facility] Last Admin: 07/09/16 10:12 Dose: Not Given - Discharge Plan Discharge Plan: Inpatient Hospitalization
[2016-07-10] MEDS: ARIPiprazole TAB* 5 MG PO SCH (08:35)
[2016-07-10] MEDS: Vitamin THERAPEUTIC TAB PO SCH (08:36)
--- NOTE | 2016-07-10 11:09 | PN ---
MHU: Group Therapy Note - Service Type Service Type: [id number] Group Psychotherapy - Cognitive Behavioral Group Therapy ( CBT):Patient was attentive and participatory in CBT programming this morning, and remained in good behavioral control. Patient expressed positive insights regarding relevant treatment interventions and goals.
--- NOTE | 2016-07-10 15:11 | PN ---
Subjective - Subjective Service Type: [id number] Hosp care 15 min low complexity Subjective: Patient denies side effects from aripiprazole. He is more calm and cooperative than previous interactions. The patient remains suspicious of his parents, not wanting to sign ROIs for them. "Why would I involve them? If they cared they would be here!" Objective - Appearance Appearance: Thin Framed Dysmorphic Features: No Hygiene: Normal Grooming: Well Kept - Behavior Psychomotor Activities: Normal Exhibits Abnormal Movement: No - Attitude and Relatedness Attitude and Relatedness: Dismissive Eye Contact: Fair - Speech Quality: Unpressured Latencies: Normal Quantity: Appropriate - Mood Patient's Decription of Mood: "Irritable" - Affect Observed Affect: Tense Affect Consistent with: Dysphoria - Thought Process Patient's Thought Process: Tangential Thought Content: Yes Paranoid Ideation, No Passive Wish, No Suicidal Planning, No Homicidal Ideation - Sensorium Experiencing Hallucinations: No, Sensorium is Clear Type of Hallucinations: Visual: No, Auditory: No, Command: No - Level of Consciousness Level of Consciousness: Alert Orientation: Yes Intact, Yes Orientated to Time, Yes Orientated to Place, Yes Orientated to Person - Impulse Control Impulse Control: Poor - Insight and Judgement Insight and Judgement: Impaired - Group Participation Particating in Group Activities: Yes - Medication Management Medication Management Adherence: Yes Assessment - Assessment Merits Inpatient Hospitalization: For Immediate Safety, For Stabilization Inpatient DSM-IV Dx: Unspecified Psychotic DO Clinical Impression: 40 y.o. single, white, homeless, itinerant male, self identifying as Religion, with a history of multiple past psychiatric admissions in multiple countries, brought in on a 9.41 by police who had discovered him wading, fully clothed and with a backpack, into [facility], who now presents with paranoid and hyperreligious delusions, irritability and inability to care for himself. Plan - Plan Treatment Plan: Name: DARRYL TOPETE Birthdate: 1975 [id number] The patient is now accepting court-ordered treatment with aripiprazole 5mg PO qday, albeit over his objection. He has been visited by some local Religion monks, and that interaction appears to have been helpful. Will work towards reducing symptoms of psychotic della in the interest of forming a safe d/c plan. Continued Medication Management: Start Medication Medications: Current Medications Acetaminophen (Tylenol Tab*) 650 mg PO Q4H PRN PRN Reason: for pain; or Temp >101 F Al Hydrox/Mg Hydrox/Simethicone (Maalox Plus*) 30 ml PO Q4H PRN PRN Reason: INDIGESTION Aripiprazole (Abilify Tab*) 5 mg PO DAILY [facility] Last Admin: 07/10/16 08:35 Dose: 5 mg Haloperidol (Haldol Tab*) 5 mg PO Q6H PRN PRN Reason: AGITATION Haloperidol Lactate (Haldol Inj Iv/Im*) 5 mg IM DAILY PRN PRN Reason: AGITATION Last Admin: 07/08/16 12:58 Dose: 5 mg Ibuprofen (Motrin Tab*) 800 mg PO Q8H PRN PRN Reason: PAIN Lorazepam (Ativan Tab(*)) 2 mg PO Q6H PRN PRN Reason: ANXIETY Multivitamins (Theragran Tab*) 1 tab PO DAILY [facility] Last Admin: 07/10/16 08:36 Dose: 1 tab - Discharge Plan Discharge Plan: Inpatient Hospitalization
[2016-07-11] MEDS: ARIPiprazole TAB* 5 MG PO SCH (08:34)
[2016-07-11] MEDS: Vitamin THERAPEUTIC TAB PO SCH (08:35)
--- NOTE | 2016-07-11 14:06 | PN ---
Subjective - Subjective Service Type: [id number] Hosp care 15 min low complexity Subjective: We received a message from Darryl's mother, Alba, yesterday that indicated Darryl had told her he is cheeking the medications for the last two days to prove that he can remain calm without medications. She also notes that he has been extremely cruel and condescending to her. I confronted him and discussed routine mouth checks and the utilization of long-acting injectable aripiprazole. He became irate, raising his voice and yelling argumentatively with me that I had no objective proof of his mental illness and that I was enjoying exercising a dominant authority position over him. "You're cruel, you don't care about me. You just think you have to solve every problem with medication!" I spoke with his step-mother, Chandni, who is still the only family he'll put on his JASEN. She is supportive of the treatment plan. Objective - Appearance Appearance: Thin Framed Dysmorphic Features: No Hygiene: Normal Grooming: Well Kept - Behavior Psychomotor Activities: Abnormal-Increased Exhibits Abnormal Movement: No - Attitude and Relatedness Attitude and Relatedness: Hostile Eye Contact: Fair - Speech Quality: Pressured Latencies: Short Quantity: Copious - Mood Patient's Decription of Mood: "Angry" - Affect Observed Affect: Labile Affect Consistent with: Dysphoria - Thought Process Patient's Thought Process: Tangential Thought Content: Yes Paranoid Ideation, No Passive Wish, No Suicidal Planning, No Homicidal Ideation - Sensorium Experiencing Hallucinations: No, Sensorium is Clear Type of Hallucinations: Visual: No, Auditory: No, Command: No - Level of Consciousness Level of Consciousness: Agitated Orientation: Yes Intact, Yes Orientated to Time, Yes Orientated to Place, Yes Orientated to Person - Impulse Control Impulse Control: Poor - Insight and Judgement Insight and Judgement: Impaired - Group Participation Particating in Group Activities: Yes - Medication Management Medication Management Adherence: No Assessment - Assessment Merits Inpatient Hospitalization: For Immediate Safety, For Stabilization Inpatient DSM-IV Dx: Unspecified Psychotic DO Clinical Impression: 40 y.o. single, white, homeless, itinerant male, self identifying as Rastafarian, with a history of multiple past psychiatric admissions in multiple countries, brought in on a 9.41 by police who had discovered him wading, fully clothed and with a backpack, into [facility], who now presents with paranoid and hyperreligious delusions, irritability and inability to care for himself. Plan - Plan Treatment Plan: Name: DARRYL TOPETE Birthdate: 1975 [id number] The patient has questionable compliance with court-ordered treatment with aripiprazole 5mg PO qday. We will increase the dose to 10mg daily and initiate routine mouth checks by nursing staff. Will work towards reducing symptoms of psychotic della in the interest of forming a safe d/c plan. Medications: Current Medications Acetaminophen (Tylenol Tab*) 650 mg PO Q4H PRN PRN Reason: for pain; or Temp >101 F Al Hydrox/Mg Hydrox/Simethicone (Maalox Plus*) 30 ml PO Q4H PRN PRN Reason: INDIGESTION Aripiprazole (Abilify Tab*) 10 mg PO DAILY [facility] Haloperidol (Haldol Tab*) 5 mg PO Q6H PRN PRN Reason: AGITATION Haloperidol Lactate (Haldol Inj Iv/Im*) 5 mg IM DAILY PRN PRN Reason: AGITATION Last Admin: 07/08/16 12:58 Dose: 5 mg Ibuprofen (Motrin Tab*) 800 mg PO Q8H PRN PRN Reason: PAIN Lorazepam (Ativan Tab(*)) 2 mg PO Q6H PRN PRN Reason: ANXIETY Multivitamins (Theragran Tab*) 1 tab PO DAILY [facility] Last Admin: 07/11/16 08:35 Dose: 1 tab
[2016-07-12] MEDS: Vitamin THERAPEUTIC TAB PO SCH (10:10)
[2016-07-12] MEDS: ARIPiprazole TAB* 5 MG PO SCH (10:10)
[2016-07-13] MEDS: Vitamin THERAPEUTIC TAB PO SCH (08:18)
[2016-07-13] MEDS: ARIPiprazole TAB* 5 MG PO SCH (08:18)
[2016-07-14] MEDS: ARIPiprazole TAB* 5 MG PO SCH (09:54)
[2016-07-14] MEDS: Vitamin THERAPEUTIC TAB PO SCH (09:54)
--- NOTE | 2016-07-14 11:24 | PN ---
MHU: Group Therapy Note - Service Type Service Type: [id number] Group Psychotherapy - Cognitive Behavioral Group Therapy ( CBT):Patient was attentive and participatory in CBT programming this morning, and remained in good behavioral control. Patient expressed positive insights regarding relevant treatment interventions and goals.
--- NOTE | 2016-07-14 13:59 | PN ---
Subjective - Subjective Service Type: 15724 Hosp care 15 min low complexity Subjective: Darryl is seen out in the day area where he is resting with his eyes closed. He declines the offer to meet in private, saying "Not after the way you treated me last time. I want to be out where people can overhear what you're saying. What do I need to do to get out of here?" The patient is informed that he will be receiving the injectable long-acting version of aripiprazole and he immediately escalates. "Why? Why? Why do I have to take something that I'm morally opposed to?" I try to explain that we feel that his adherence would improve in the community on the once-monthly formulation, however, he further escalates and starts screaming at me. "You want to fuck me! Sticking this needle in my arm is like sticking your laurie in my ass. You're fucking raping me !" Other patients and family members easily overhear this and move away from him. At this time this observer no longer feels safe and instinctively ends the interaction as he swears at me multiple times. Objective - Appearance Appearance: Thin Framed Dysmorphic Features: No Hygiene: Normal Grooming: Well Kept - Behavior Psychomotor Activities: Abnormal-Increased Exhibits Abnormal Movement: No - Attitude and Relatedness Attitude and Relatedness: Hostile Eye Contact: Poor - Speech Quality: Pressured Latencies: Short Quantity: Copious - Mood Patient's Decription of Mood: "Angry" - Affect Observed Affect: Labile Affect Consistent with: Dysphoria - Thought Process Patient's Thought Process: Tangential Thought Content: Yes Paranoid Ideation, No Passive Wish, No Suicidal Planning, No Homicidal Ideation - Sensorium Experiencing Hallucinations: No, Sensorium is Clear Type of Hallucinations: Visual: No, Auditory: No, Command: No - Level of Consciousness Level of Consciousness: Agitated Orientation: Yes Intact, Yes Orientated to Time, Yes Orientated to Place, Yes Orientated to Person - Impulse Control Impulse Control: Poor - Insight and Judgement Insight and Judgement: Impaired - Group Participation Particating in Group Activities: No - Medication Management Medication Management Adherence: Partial Assessment - Assessment Merits Inpatient Hospitalization: For Immediate Safety, For Stabilization Inpatient DSM-IV Dx: Unspecified Psychotic DO Clinical Impression: 40 y.o. single, white, homeless, itinerant male, self identifying as Pentecostalism, with a history of multiple past psychiatric admissions in multiple countries, brought in on a 9.41 by police who had discovered him wading, fully clothed and with a backpack, into [facility], who now presents with paranoid and hyperreligious delusions, irritability and inability to care for himself. Plan - Plan Treatment Plan: Name: DARRYL TOPETE Birthdate: 1975 [id number] The patient has questionable compliance with court-ordered treatment with aripiprazole 10mg PO qday. We will start long-acting injectable aripiprazole maintaina at the loading dose of 400mg IM times one. Will work towards reducing symptoms of psychotic della in the interest of forming a safe d/c plan. Continued Medication Management: Start Medication Medications: Current Medications Acetaminophen (Tylenol Tab*) 650 mg PO Q4H PRN PRN Reason: for pain; or Temp >101 F Al Hydrox/Mg Hydrox/Simethicone (Maalox Plus*) 30 ml PO Q4H PRN PRN Reason: INDIGESTION Aripiprazole (Abilify Tab*) 10 mg PO DAILY [facility] Last Admin: 07/14/16 09:54 Dose: 10 mg Aripiprazole (Abilify Maintena (Nf)) 300 mg IM Q28D [facility] Haloperidol (Haldol Tab*) 5 mg PO Q6H PRN PRN Reason: AGITATION Haloperidol Lactate (Haldol Inj Iv/Im*) 5 mg IM DAILY PRN PRN Reason: AGITATION Last Admin: 07/08/16 12:58 Dose: 5 mg Ibuprofen (Motrin Tab*) 800 mg PO Q8H PRN PRN Reason: PAIN Lorazepam (Ativan Tab(*)) 2 mg PO Q6H PRN PRN Reason: ANXIETY Multivitamins (Theragran Tab*) 1 tab PO DAILY [facility] Last Admin: 07/14/16 09:54 Dose: 1 tab - Discharge Plan Discharge Plan: Inpatient Hospitalization
--- NOTE | 2016-07-15 10:59 | PN ---
Subjective - Subjective Service Type: [id number] Hosp care 15 min low complexity Subjective: Lew is calm and under control today. He still refutes the need for medications over his objection and does c/o of stomach discomfort and fatigue from the injectable aripiprazole, which he received yesterday afternoon. The patient continues to complain of foot pain. He is requesting computer privileges to pursue discharge planning so he can contact friends who may be willing to take him in. Objective - Appearance Appearance: Thin Framed Dysmorphic Features: No Hygiene: Normal Grooming: Well Kept - Behavior Psychomotor Activities: Normal Exhibits Abnormal Movement: No - Attitude and Relatedness Attitude and Relatedness: Cooperative Eye Contact: Fair - Speech Quality: Unpressured Latencies: Normal Quantity: Terse - Mood Patient's Decription of Mood: "Fine" - Affect Observed Affect: Fair Affect Consistent with: Euthymia - Thought Process Patient's Thought Process: Coherent Thought Content: No Passive Wish, No Suicidal Planning, No Homicidal Ideation, No Paranoid Ideation - Sensorium Experiencing Hallucinations: No, Sensorium is Clear Type of Hallucinations: Visual: No, Auditory: No, Command: No - Level of Consciousness Level of Consciousness: Alert Orientation: Yes Intact, Yes Orientated to Time, Yes Orientated to Place, Yes Orientated to Person - Impulse Control Impulse Control: Poor - Insight and Judgement Insight and Judgement: Impaired - Group Participation Particating in Group Activities: Yes - Medication Management Medication Management Adherence: Yes Assessment - Assessment Merits Inpatient Hospitalization: For Immediate Safety, For Stabilization Inpatient DSM-IV Dx: Unspecified Psychotic DO Clinical Impression: 40 y.o. single, white, homeless, itinerant male, self identifying as Baptism, with a history of multiple past psychiatric admissions in multiple countries, brought in on a 9.41 by police who had discovered him wading, fully clothed and with a backpack, into [facility], who now presents with paranoid and hyperreligious delusions, irritability and inability to care for himself. Plan - Plan Treatment Plan: Name: LEW TOPETE Birthdate: 1975 [id number] The patient has been placed on long-acting injectable aripiprazole maintaina at the loading dose of 400mg IM times one and we will continue to follow his tolerance of this. We will give him computer privileges in the interest of d/c planning. Ortho consult for continued foot pain despite negative X-ray findings. Continued Medication Management: Start Medication Medications: Current Medications Acetaminophen (Tylenol Tab*) 650 mg PO Q4H PRN PRN Reason: for pain; or Temp >101 F Al Hydrox/Mg Hydrox/Simethicone (Maalox Plus*) 30 ml PO Q4H PRN PRN Reason: INDIGESTION Aripiprazole (Reinaldo Locke (Nf)) 400 mg IM Q28D [facility] Last Admin: 07/14/16 14:06 Dose: 400 mg Haloperidol (Haldol Tab*) 5 mg PO Q6H PRN PRN Reason: AGITATION Haloperidol Lactate (Haldol Inj Iv/Im*) 5 mg IM DAILY PRN PRN Reason: AGITATION Last Admin: 07/08/16 12:58 Dose: 5 mg Ibuprofen (Motrin Tab*) 800 mg PO Q8H PRN PRN Reason: PAIN Lorazepam (Ativan Tab(*)) 2 mg PO Q6H PRN PRN Reason: ANXIETY Multivitamins (Theragran Tab*) 1 tab PO DAILY [facility] Last Admin: 07/14/16 09:54 Dose: 1 tab - Discharge Plan Discharge Plan: Inpatient Hospitalization
[2016-07-15] MEDS: Vitamin THERAPEUTIC TAB PO SCH (11:21)
--- NOTE | 2016-07-15 11:48 | PN ---
MHU: Group Therapy Note - Service Type Service Type: [id number] Group Psychotherapy - Cognitive Behavioral Group Therapy ( CBT):Patient was attentive and participatory in CBT programming this morning, and remained in good behavioral control. Patient expressed positive insights regarding relevant treatment interventions and goals.
--- NOTE | 2016-07-15 20:10 | CONS ---
ORTHOPEDIC CONSULT NOTE: DATE OF CONSULT: 07/15/16 ATTENDING SURGEON: Iona Perea MD Thank you for this orthopedic consultation. CHIEF COMPLAINT: Right foot pain. HISTORY OF PRESENT ILLNESS: Mr. Cuevas is a 40-year-old gentleman, who is admitted to the Behavioral [facility] Unit on 06/26/16 with agitated psychotic behavior and inability to care for himself in the community. He has known history of bipolar disorder and psychosis. Per report, when he was admitted he kicked a heavy door with his right foot. Since that time, he reports he has had 3/10 aching pain along the base of his right great toe and medial arch, as well as dorsal forefoot. The patient reports weightbearing and certain twisting increases his pain. He is able to ambulate. Rest and elevation decrease his pain minimally. Overall, the pain has improved over the last 3 weeks but it does continue. He reports he had a stress fracture in this foot 20 years ago. PAST MEDICAL HISTORY: Bipolar disorder with history of psychosis, multiple psychiatric hospitalizations, history of schizophrenia diagnosis. PAST SURGICAL HISTORY: None. CURRENT MEDICATIONS: The patient denies any outpatient medications. He has been receiving Haldol and Ativan since hospitalization. ALLERGIES: No known drug allergies. SOCIAL HISTORY: The patient is from [place]. Normally an independent ambulator. No smoking, drinking, or recreational drug use. No history of drug abuse. REVIEW OF SYSTEMS: Fourteen systems reviewed with the patient, positive for right foot pain and swelling. Positive for recent anxiety, agitation. Negative for fevers, chills, chest pain, shortness of breath, otherwise review of systems is negative or not relevant. PHYSICAL EXAM: Vitals: Most recent vitals showed temperature 98.6, heart rate 53, O2 saturation 100% on room air, blood pressure 116/79. General: The patient is a thin male in no apparent distress. Alert and oriented x3. Pleasant mood and appropriate affect. Gait: The patient's gait is normal without a significant antalgic limp. Right lower extremity: The patient's skin is intact. He has no abrasions or open wounds. Tenderness to palpation along the base of the first metatarsal and medial arch. Mild swelling. He can demonstrate dorsiflexion and plantar flexion with 5/5 strength, EHL, FHL, full sensation to light touch in all nerve distributions and 2+ palpable DP pulse. No hyperreflexia. No palpable masses or lymph nodes. No varicosities or edema. DIAGNOSTIC STUDIES: Radiographs: Multiple views of the patient's right foot are reviewed from 06/26/16. There is a negative radiology report. I feel there is small avulsion fracture along the base of the first metatarsal on the AP view. ASSESSMENT AND PLAN: Mr. Cuevas is a 40-year-old male, who kicked a hard inanimate object with his right foot 3 weeks ago around 06/26/16. Since then, the patient has had pain along the medial arch of his foot and base of the first metatarsal. This corresponds with the small area with possible avulsion fracture along the base of the first metatarsal. There is no obvious dislocation or subluxation here. The patient is doing quite well at this point. He continues to have some pain with ambulating and twisting of the foot. I will order him an immobilizing Cam boot to wear when he is ambulating. He can take it off at night. I will also order physical therapy to come see him and teach him some stretching and strengthening exercises, so that when he is discharged he can continue this regimen. He has little resources to follow up with physical therapy. I would be glad to follow this patient while he is hospitalized and once discharged, he should follow up with me in clinic for a recheck in 2 weeks' time. Please call with any questions. [id number]/[facility] #: [id number] CHARLEEN
[2016-07-16] MEDS: Vitamin THERAPEUTIC TAB PO SCH (11:23)
[2016-07-17] MEDS: Vitamin THERAPEUTIC TAB PO SCH (09:41)
--- NOTE | 2016-07-17 11:15 | PN ---
Subjective - Subjective Service Type: 80691 Hosp care 15 min low complexity Subjective: Darryl continues to complain of sedation from the injectable aripiprazole, but he feels he is adjusting to the medicine otherwise. staff was able to interact with a couple in [place], [place], Ponce and Vicki Connelly, who Darryl has stayed with before. They are agreeable to taking him in and providing him with nursing home and employment as a emergency veterinary assistant. The plan involves him taking a bus to [place], [place] tomorrow, where they can pick him up. Follow up would be at [facility] and with psychotherapist, Aneudy Mosher, through phone sessions. Darryl is able to tolerate going outside with me and sitting in the hospital garden by the clay where we discuss how his treatment has unfolded and what he's gained from this. "It hasn't been enjoyable but suffering is helpful when it takes you to a higher state of enlightenment. I know I wasn't in a healthy frame of mind when I came in here." Objective - Appearance Appearance: Thin Framed Dysmorphic Features: No Hygiene: Normal Grooming: Well Kept - Behavior Psychomotor Activities: Normal Exhibits Abnormal Movement: No - Attitude and Relatedness Attitude and Relatedness: Cooperative Eye Contact: Good - Speech Quality: Unpressured Latencies: Normal Quantity: Appropriate - Mood Patient's Decription of Mood: "Good" - Affect Observed Affect: Good Affect Consistent with: Euthymia - Thought Process Patient's Thought Process: Coherent Thought Content: No Passive Wish, No Suicidal Planning, No Homicidal Ideation, No Paranoid Ideation - Sensorium Experiencing Hallucinations: No, Sensorium is Clear Type of Hallucinations: Visual: No, Auditory: No, Command: No - Level of Consciousness Level of Consciousness: Alert Orientation: Yes Intact, Yes Orientated to Time, Yes Orientated to Place, Yes Orientated to Person - Impulse Control Impulse Control: Tenuous - Insight and Judgement Insight and Judgement: Fair - Group Participation Particating in Group Activities: Yes - Medication Management Medication Management Adherence: Yes Assessment - Assessment Merits Inpatient Hospitalization: Consolidate Improvements, Pending Safe DC Plan Inpatient DSM-IV Dx: Unspecified Psychotic DO Clinical Impression: 40 y.o. single, white, homeless, itinerant male, self identifying as Uatsdin, with a history of multiple past psychiatric admissions in multiple countries, brought in on a 9.41 by police who had discovered him wading, fully clothed and with a backpack, into [facility], who now presents with paranoid and hyperreligious delusions, irritability and inability to care for himself. Plan - Plan Treatment Plan: Name: DARRYL TOPETE Birthdate: 1975 [id number] The patient has been placed on long-acting injectable aripiprazole maintaina at the loading dose of 400mg IM times one and we will continue to follow his tolerance of this. Ortho consult appreciated and patient is in CAM boot. Plan is for d/c tomorrow to stay with friends in [place], [place]. Family supportive. Continued Medication Management: Start Medication Medications: Current Medications Acetaminophen (Tylenol Tab*) 650 mg PO Q4H PRN PRN Reason: for pain; or Temp >101 F Al Hydrox/Mg Hydrox/Simethicone (Maalox Plus*) 30 ml PO Q4H PRN PRN Reason: INDIGESTION Aripiprazole (Abilinia Maintena (Nf)) 400 mg IM Q28D [facility] Last Admin: 07/14/16 14:06 Dose: 400 mg Haloperidol (Haldol Tab*) 5 mg PO Q6H PRN PRN Reason: AGITATION Haloperidol Lactate (Haldol Inj Iv/Im*) 5 mg IM DAILY PRN PRN Reason: AGITATION Last Admin: 07/08/16 12:58 Dose: 5 mg Ibuprofen (Motrin Tab*) 800 mg PO Q8H PRN PRN Reason: PAIN Lorazepam (Ativan Tab(*)) 2 mg PO Q6H PRN PRN Reason: ANXIETY Multivitamins (Theragran Tab*) 1 tab PO DAILY [facility] Last Admin: 07/17/16 09:41 Dose: 1 tab - Discharge Plan Discharge Plan: Outpatient Follow Up Outpatient Program: [facility] Additional Comments: [facility]
[2016-07-18] MEDS: Vitamin THERAPEUTIC TAB PO SCH (09:12)
[2016-07-18 10:06] VITALS: BP 122/75
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
== END 2016-07-18 11:00 | disposition home or self-care (01) | DRG 885 ==
LOC: ED 13:56 → BSU 06-26 13:42
PROVIDERS: ADMIT Psychiatry & Neurology Psychiatry; ATTEND Psychiatry & Neurology Psychiatry
PROC: GZHZZZZ Group Psychotherapy (ICD-10-PCS; principal; 2016-07-02)
DX: F31.2 Bipolar disorder, current episode manic severe with psychotic features (principal); L03.311 Cellulitis of abdominal wall; S99.921A Unspecified injury of right foot, initial encounter; F20.9 Schizophrenia, unspecified; Y92.238 Other place in hospital as the place of occurrence of the external cause; Z91.5 Personal history of self-harm; Z87.820 Personal history of traumatic brain injury; W22.8XXA Striking against or struck by other objects, initial encounter; Z72.89 Other problems related to lifestyle; Z56.0 Unemployment, unspecified; Z59.0 Homelessness; Z91.14 Patient's other noncompliance with medication regimen
CPT/HCPCS: 36415; 80053; 80307; 80320; 80329; 81003; 81015; 84443; 85025; 90853; 99222; 99231; 99232; 99238; A9270-GY; G0480; J1200; J1630; J2060